=== PATIENT | female | born 1970 | race Two or more races ===

== ENCOUNTER 2022-12-23 09:36 | Emergency (ER) | payer OTHER ==
[~2022-12-23] VITALS: Ht 167.6 cm; Wt 67.6 kg
[2022-12-23 12:45] LABS: PH,URINE 5.5 (5.0-8.0); URINE APPEARANCE Clear; URINE BILIRRUBIN Negative (NEGATIVE); URINE BLOOD Negative; URINE COLOR Yellow; URINE GLUCOSE Negative (NEGATIVE); URINE LEUKOCYTE Negative; URINE NITRATE Negative; URINE PROTEIN Negative (NEGATIVE); URINE UROBILINOGEN 0.2 E.U./dl
[2022-12-23 12:48] LABS: URINE BACTERIA 159.9 uL (0.0-1933); URINE EPITHELIAL CELLS 6.7 uL (0.0-38.8); URINE RBC 8.3 uL (0.0-20.8); URINE WBC 2.1 uL (0.0-23.2)
[2022-12-23 12:49] LABS: HEMATOCRIT 43.4 % (36.0-45.00); HEMOGLOBIN 14.5 g/dL (12.0-15.00); MEAN CELL VOLUME 88.2 fL (80.00-100.00); MEAN CORPUSCULAR HEMOGLOBIN 29.5 pg (27.00-32.0); MEAN CORPUSCULAR HGB CONC 33.5 g/dl (32.0-36.0); PLATELET COUNT 234 K/uL (150-450); RED BLOOD COUNT 4.92 M/uL (4.00-6.00); RED CELL DISTRIBUTION WIDTH 13.8 % (11.5-14.5)
== END 2022-12-23 14:57 | disposition home or self-care (01) ==
LOC: ER 09:36 → EDBD 09:42 → ER 09:42
PROVIDERS: General Practice
DX: B34.9 Viral infection, unspecified (principal)